=== PATIENT | female | born 1960 | race Caucasian/White ===

== ENCOUNTER 2021-01-30 10:38 | Outpatient (CLI) | payer BC ==
[~2021-01-30] VITALS: Ht 154.9 cm; Wt 61.3 kg
[2021-01-30] MEDS ORDERED: BAMLANIVIMAB 700 MG/ETESEVIMAB 1,400 MG IN NS IV ONE ×3 (11:00)
[2021-01-30] MEDS ORDERED: ONDANSETRON 4 MG/2 ML (SDV) Z0FRAN IV PRN (11:00)
[2021-01-30] MEDS ORDERED: ACETAMINOPHEN 500 MG TAB (TYLENOL) PO PRN (11:00)
[2021-01-30] MEDS ORDERED: EPINEPHrine INJECTION 1 MG/ML AMP IM PRN (11:00)
[2021-01-30] MEDS ORDERED: diphenhydrAMINE 50 MG/ML INJ (BENADRYL) IV PRN (11:00)
[2021-01-30 12:33] VITALS: BP 115/70
[2021-01-30 12:50] VITALS: BP 121/84
== END 2021-01-30 12:50 | disposition home or self-care (01) ==
LOC: INFUSION 10:38
PROVIDERS: ATTEND Nurse Practitioner Family
DX: U07.1 COVID-19 (principal)